=== PATIENT | female | born 1945 | race Caucasian/White ===

== ENCOUNTER 2019-12-17 15:31 | Inpatient (IN) | payer MEDICARE, SELFPAY ==
[2019-12-17] VITALS (8 sets, daily range): BP systolic 98–121; BP diastolic 49–79; PULSE 63–111; RESP 16–22; TEMP 36.7–39.1; O2SAT 94–98; BMI 27.1
--- NOTE | ~2019-12-17 | XR_ITS ---
EXAMINATION: XR chest 1V portable DATE: 12/17/2019 16:46 INDICATION: Sepsis. Weakness and dizziness. TECHNIQUE: A single frontal view of the chest was obtained. COMPARISON: Chest 2 views 11/19/2018, CT abdomen and pelvis 11/12/2015 FINDINGS: The chest demonstrates clear lungs without pneumonia, pleural effusion, or pneumothorax. Th e heart size is normal. There are surgical clips in left axilla. IMPRESSION: 1. No acute cardiopulmonary disease. Reviewed, dictated and finalized at location A. INSTRUCTOR
--- NOTE | 2019-12-17 15:47 | ECG_ITS ---
Measurements Intervals [place] Rate: 98 P: 51 MO: 171 QRS: 10 QRSD: 94 T: 30 QT: 321 QTc: 412 Interpretive Statements SINUS RHYTHM INCOMPLETE RIGHT BUNDLE BRANCH BLOCK BORDERLINE ST-T WAVE ABNORMALITY- DIFFUSE LEADS BASELINE WANDER- II, III, AVR, AVL, AVF BORDERLINE ECG Electronically Signed On 12-17-2019 17:52:30 HEALTH MANAGER by Nehemias Grossman D.O.
--- NOTE | 2019-12-17 16:01 | PC.NURSE ---
SPOKE WITH GEOVANNI MARSH ABOUT PT PRESENTATION MEETING SEPSIS CRITERIA, VERBAL ORDER TO PLACE SEPSIS PROTOCOL.
--- NOTE | 2019-12-17 16:03 | ED.AMS ---
HPI - Altered Mental Status General Chief Complaint: Altered Mental Status Stated Complaint: Disoriented. Time Seen by Provider: 12/17/19 16:00 Source: family and RN notes reviewed Mode of arrival: other Limitations: altered mental status History of Present Illness HPI narrative: Pt is a 74 y/o female who presents to the ED with c/o AMS that began today. Pt's family was in the room and provided the information. Pt?s family called the pt?s PCP last week thinking the pt had a UTI. Pt was sent some abx, but the pt?s family is unsure if the pt has been taking the medication.Pt gets her blood drawn weekly for her chemotherapy for her bladder cancer. Pt went to her PCP?s office today and the pt?s family states the pt proceeded to lay and not respond to questions. Pt had her blood drawn today and the pt complained of being cold and not able to warm back up. She began to talk incoherently while at her PCP's office. Pt was given a piece of cheese and pt's family states that she chewed on the cheese like a piece of gum. Pt choked on the cheese and spit her coffee onto the dashboard while en route to the ED today. Pt's oncologist is Dr. Frank. HPI is limited due to pt's AMS. complaint: altered mental status Onset (ago): hour(s) Associated symptoms: chills and other (limited due to pt's AMS) Related Data Allergies Allergy/AdvReac Type Severity Reaction Status Date / Time Penicillins Allergy Unknown Verified 10/28/15 14:18 Review of Systems Review of Systems: ROS unobtainable: other (limited due to pt's AMS.) Constitutional: Constitutional: Reports chills Neurologic: Reports other (AMS) [facility] Past Medical History Medical History (Updated 12/17/19 @ 18:45 by Freedom Daniel MD) Arthritis Cataracts, bilateral DVT (deep venous thrombosis) right leg IBS (irritable bowel syndrome) Myocardial infarction Osteoarthritis Peripheral vascular disease BLE Pneumonia Rheumatoid arthritis Seasonal allergies Type II diabetes mellitus Urethral cancer Surgical History Surgical History (Updated 12/17/19 @ 16:27 by Darcy Greer) Hx of appendectomy Hx of cataract removal with insertion of prosthetic lens Hx of right BKA Family History Family History (Updated 08/28/14 @ 07:13 by DOCTOR UNKNOWN) Father Carcinoma of colon Social History Social History Smoking status: Never smoker Gender identity (if verbalized by the patient): Female Exam Const: General: no acute distress, confusion and ill appearing Orientation/consciousness: patient oriented x3 HENMT: Head: normal to inspection Eyes: Conjunctivae: conjunctivae normal Pupils: Equal, round and reactive pupils present Neck: Neck: normal visual inspection Chest: Chest palpation & inspection: normal inspection of the chest Resp: Effort & Inspection: normal respiratory effort Auscultation: clear to auscultation bilaterally Cardio: Rate: regular rate GI: GI Palp: Yes Soft to palpation Back/Spine/Pelvis: Back: no CVA tenderness Skin: General skin exam: normal color Rashes: no rashes Neuro: General: patient oriented x3 and moves all extremities Extrem: General: normal to inspection Other: BKA right Course Course Emergency Course: Patient feeling much better after IV fluids I discussed labs and x-ray findings with the patient and the family. Also discussed with [facility] oncology team they have presently no beds at this time we will admit the patient start IV antibiotic. Consultations Consultation #1: Discussed case with [facility] ED. States there are no beds available. Date: 12/17/19 Time: 17:23 Consultation #2: Discussed case with LAINE Ma (Hospitalist). Accepts admission to Dr. Noland. Date: 12/17/19 Time: 17:29 Vital Signs Vital signs: Vital Signs Temperature 39.1 C H 12/17/19 15:40 Pulse Rate 111 H 12/17/19 15:40 Respiratory Rate 22 H 12/17/19 15:40 Blood Pressure 121/60 12/17/19 15:40 Pulse Oximetry 95 12/17/19 15:
[2019-12-17 16:10] LABS: Basophils Absolute Auto 0.1 K/mm3 (0.0-0.1); Eosinophils Absolute Auto 0.1 K/mm3 (0-0.3); Eosinophils Percent Auto 0.4 % (0-4.4); Hematocrit 36.5 % (37.0-47.0); Hemoglobin 12.5 g/dL (12.0-15.0); Immature Granulocyte Absolute 1.03 K/mm3 (0.00-0.031); Immature Granulocyte Percent A 8.3 % (0-0.5); Lymphocytes Absolute Auto 1.07 K/mm3 (0.9-3.2); Lymphocytes Percent Auto 8.6 % (18.3-44.2); Mean Corpuscular HGB Conc 34.2 g/dl (32-36); Mean Corpuscular Hemoglobin 33.6 pg (26-34); Mean Corpuscular Volume 98.1 fl (80-100); Monocytes Absolute Auto 1.1 K/mm3 (0.1-0.6); Monocytes Percent Auto 9.1 % (2.6-8.5); Neutrophils Percent Auto 72.6 % (45.5-73.1); Platelet Count Result 270 k/mm3 (150-375); Red Blood Count 3.72 M/mm3 (4.2-5.4); Red Cell Distribution Width 12.7 % (11.5-14.5); White Blood Count 12.4 K/mm3 (4.5-10.0)
[2019-12-17 16:22] LABS: Lactic Acid Reflex 1.7 mmol/L (0.7-2.1)
[2019-12-17 16:24] LABS: Alanine Aminotransferase 13 U/L (4-35); Albumin Level 3.6 g/dL (3.5-5.1); Alkaline Phosphatase 90 U/L (38-126); Aspartate Amino Transferase 21 U/L (14-36); Bilirubin,Total 0.6 mg/dL (0.2-1.3); Blood Urea Nitrogen 25 mg/dL (7-17); Calcium 9.2 mg/dL (8.4-10.2); Carbon Dioxide 27 mmol/L (22-30); Chloride 99 mmol/L (98-107); Estimated CRCL calculation 40 ml/min; Estimated Glomerular Filt Rate > 60; Glucose 291 mg/dL (65-105); Prothrombin Time 12.7 Seconds (11.1-14.7); Sodium 137 mmol/L (137-145)
[2019-12-17 16:25] LABS: Partial Thromboplastin Time 25.8 SECONDS (22.3-36.8)
[2019-12-17 16:28] LABS: CRP 1.9 mg/dL (<1.0); Lipase 30 U/L (23-300)
[2019-12-17 16:35] LABS: Troponin I 0.014 ng/mL (0.000-0.034)
[2019-12-17 16:48] LABS: Add Urine Microscopic? YES; Appearance Urine Turbid (Clear); Bacteria Urine 2+ /hpf; Bilirubin Urine Negative (Negative); Color Urine Yellow (Yellow); Glucose Urine UA 3+ mg/dL (Negative); Ketones Urine Trace mg/dL (Negative); Leukocyte Esterase Ur 2+ LEU/UL (Negative); Mucus Urine Moderate /lpf; Nitrate Urine Negative (Negative); Protein Urine 3+ mg/dL (Negative); RBC Urine 51-75 /hpf (0-2); Specific Grav Ur 1.013 (1.001-1.035); Urobilinogen Urine Negative mg/dL (<2.0); WBC Urine >75 /hpf
[2019-12-17 16:49] LABS: Blood Urine Negative (Negative)
[2019-12-17] MEDS: ACETAMINOPHEN 325 MG TABLET 650 MG PO (17:55)
[2019-12-17] MEDS: SODIUM CHLORIDE 0.9% IV 2,000 ML 999 ML (17:55)
[2019-12-17] MEDS: SODIUM CHLORIDE 0.9% IV 1,000 ML 125 ML IV CONT (20:42)
[2019-12-17 20:44] LABS: Glucose Point of Care 205 (65-105)
--- NOTE | 2019-12-17 21:49 | ADMGEN ---
This patient, Sal Thompson, was admitted to IMU Room 205-02. Patient/family oriented to hospital policies and general routines including ID bracelet, bed and alarms, visiting hours, pain management, procedures, bathroom and other care routines, personal items, smoking policy, room service/diet, and visiting hours. Valuables list has been completed. Information on how to activate the Rapid Response Team has been discussed. Patient/Family are encouraged to report perceived risks to care and to ask questions if they do not understand what they are told or what they should do.
[2019-12-18] VITALS (16 sets, daily range): BP systolic 99–125; BP diastolic 37–49; PULSE 70–98; RESP 18–21; TEMP 36.4–39.4; O2SAT 96–100; BMI 27.2
[2019-12-18] MEDS: ACETAMINOPHEN 325 MG TABLET 650 MG PO (00:24)
--- NOTE | 2019-12-18 01:50 | PM.IMHP ---
H&P: HPI History of Present Illness Chief complaint: altered mental status uti Narrative: Date and time of patient contact: 12/18/2019 at 1:30 a.m. Sal Thompson is a 74 year old female with a past medical history of metastatic urethral cancer, peripheral vascular disease status post right below-knee amputation, and diabetes who presented to the ER with confusion. The patient denies having actually been confused but while in her primary care physician's office prior to coming to the ER the patient was lying down and not responding to questions. She was also talking incoherently at her primary care physician's office. The family gave her piece of cheese to eat and she chewed on it like it was a piece of gum. She then choked on the cheese. She also is better coffee on to the dashboard while coming to the ER today. The patient tells me that her biggest complaint was that she was so cold she was shaking and could not walk a straight line. She has been having dysuria for approximately 2 weeks. She had went to her primary care doctor in [facility] for UTI about a week ago but the family was uncertain if the patient had actually taken antibiotic. She denies any nausea or vomiting. She is currently alert and oriented x3. She denies any cough, congestion, sore throat, headache or visual changes. When the patient arrived to the ER she could not recall her date of , where she was at or the month. When I asked her if she was feeling confused earlier in the day see stated that ?that was nonsense. She does not remember being confused. She reports that her stools have been harder more recently. She states that she needs to start taking MiraLax. She usually takes MiraLax as needed at home. Her last bowel movement was yesterday. Patient has noticed that her Toviaz has not been helping with her urinary incontinence for the last 2 weeks. She stated that before the last 2 weeks the medication was working well. The patient did have right CVA tenderness on exam. The patient's blood pressures did dip to 98/70 just prior to transfer to the floor. But her blood pressures have been stable since that time. Patient receives cancer therapy at [facility]. Evidently the patient has been accepted to the oncology service by Dr. Frank. She is awaiting a bed at [facility]. Review of Systems Review of Systems: Narrative: Except as documented in the HPI, all other systems were reviewed and are negative. [facility] Past Medical History Medical History (Updated 12/18/19 @ 01:58 by Venessa Lamb DO) IBS (irritable bowel syndrome) Myocardial infarction Osteoarthritis Peripheral vascular disease BLE subsequent right [id number] amputation Pneumonia Rheumatoid arthritis Seasonal allergies Shingles 2009 Type II diabetes mellitus Urethral cancer Diagnosed 2017 Surgical History Surgical History (Updated 12/18/19 @ 01:58 by Venessa Lamb DO) History of colonoscopy 2010 Hx of appendectomy September 2015 Hx of cataract removal with insertion of prosthetic lens Hx of right BKA March 2019 due to nonhealing foot wound from peripheral vascular disease Family History Family History (Updated 12/17/19 @ 22:04 by Janeth Gonzalez RN) Father Carcinoma of colon Diabetes mellitus Hypertension Arthritis Mother Diabetes mellitus Hypertension Arthritis Sibling Diabetes mellitus Social History Social History (Updated 12/18/19 @ 03:41 by Venessa Lamb DO) Smoking status: Never smoker Alcohol intake: never Substance use: never Living arrangements: alone Additional living arrangements comments: She is . Gender identity (if verbalized by the patient): Female Spiritual care concerns: No Agree to blood products: Yes Meds Home Medications and Allergies Home Medications Medication Instructions Recorded Confirmed Type amlodipine 5 mg PO DAILY 12/17/19 12/17/19 History atorvastatin 40 mg P
[2019-12-18] MEDS: SODIUM CHLORIDE 0.9% IV 1,000 ML 125 ML IV CONT ×2 (04:41→13:19)
[2019-12-18 04:47] LABS: Basophils Absolute Auto 0.1 K/mm3 (0.0-0.1); Basophils Percent Auto 0.4 % (0.2-1.2); Eosinophils Absolute Auto 0.1 K/mm3 (0-0.3); Eosinophils Percent Auto 0.5 % (0-4.4); Hematocrit 28.5 % (37.0-47.0); Hemoglobin 9.3 g/dL (12.0-15.0); Immature Granulocyte Absolute 0.69 K/mm3 (0.00-0.031); Immature Granulocyte Percent A 6.1 % (0-0.5); Lymphocytes Absolute Auto 2.36 K/mm3 (0.9-3.2); Lymphocytes Percent Auto 20.8 % (18.3-44.2); Mean Corpuscular HGB Conc 32.6 g/dl (32-36); Mean Corpuscular Hemoglobin 32.6 pg (26-34); Mean Platelet Volume 9.2 fl (7.4-10.4); Monocytes Absolute Auto 1.4 K/mm3 (0.1-0.6); Neutrophils Absolute Auto 6.8 K/mm3 (1.3-6.7); Neutrophils Percent Auto 60.2 % (45.5-73.1); Platelet Count Result 213 k/mm3 (150-375); Red Blood Count 2.85 M/mm3 (4.2-5.4); Red Cell Distribution Width 12.8 % (11.5-14.5); White Blood Count 11.4 K/mm3 (4.5-10.0)
[2019-12-18 05:14] LABS: Blood Urea Nitrogen 15 mg/dL (7-17); Calcium 7.9 mg/dL (8.4-10.2); Carbon Dioxide 25 mmol/L (22-30); Chloride 106 mmol/L (98-107); Estimated CRCL calculation 39 ml/min; Estimated Glomerular Filt Rate > 60; Glucose 206 mg/dL (65-105); Potassium 3.1 mmol/L (3.4-5.0); Sodium 138 mmol/L (137-145)
[2019-12-18 06:58] LABS: Glucose Point of Care 139 (65-105)
[2019-12-18] MEDS: ENOXAPARIN 40 MG/0.4 ML SYRINGE SUB-Q (09:59)
[2019-12-18] MEDS: SILVERGEL (ELTA) 45 ML 1 APPLIC TOPICAL (09:59)
[2019-12-18 12:35] LABS: Glucose Point of Care 196 (65-105)
--- NOTE | 2019-12-18 14:12 | PCNSR ---
On 12/18/19, the student, Adina Green, provided care and completed [facility] documentation on this patient. I have reviewed the student's documentation and agree with the findings.
--- NOTE | 2019-12-18 16:23 | PM.IMPN ---
Progress Note: A&P Assessment and Plan (1) Sepsis: Code(s): A41.9 - Sepsis, unspecified organism Status: Acute Assessment and Plan: Due to pyelonephritis. Empiric antibiotic therapy with Rocephin has been initiated. Urine cultures have been obtained and are pending. Blood cultures have been obtained and are pending. Pt appears comfortable. (2) Metabolic encephalopathy: Code(s): G93.41 - Metabolic encephalopathy Status: Resolved Assessment and Plan: The patient appears to be back at baseline. (3) Acute UTI: Code(s): N39.0 - Urinary tract infection, site not specified Status: Acute Assessment and Plan: With likely ascending right pyelonephritis given right CVA tenderness. Patient has been placed on empiric antibiotic therapy with Rocephin. Urine culture and blood cultures are pending. I do not think pt needs transfer to [place], as she is improving. Subjective Date/time seen: 12/18/19 16:23 Interval history: 74 year old female with a past medical history of metastatic urethral cancer, peripheral vascular disease status post right below-knee amputation, and diabetes who presented to the ER with confusion. Pt is not confused today, oriented x3 since starting iv antibiotics. Review of Systems Review of Systems: All systems reviewed & are unremarkable except as noted in HPI and below Exam Narrative: Exam Narrative: General: A well-developed well-nourished, no acute distress HEENT: Mucous membranes are dry Neck: Supple, no JVD Respiratory: Clear to auscultation bilaterally, no increased work of breathing Cardiovascular: Normal S1-S2, regular rate, no murmurs Gastrointestinal: Soft, nontender, nondistended, positive bowel sounds Skin: Normal temperature, non jaundice, no pallor Extremities: Right ivbhw-[id number] amputation with stump site in good condition Neurological: Alert and oriented x3, speech is clear, cranial nerves appear to be intact except for the patient's chronic hearing loss, no gross motor deficits noted Psychiatric: Appropriate mood and affect, pleasant and cooperative Objective Data Vital Signs Vital Signs: Vital Signs - 24 hr 12/17/19 18:45 12/17/19 19:42 12/17/19 20:00 Temperature 37.7 C H Pulse Rate 82 86 87 Respiratory Rate 16 18 18 Blood Pressure 100/74 104/49 L 104/57 L Pulse Oximetry 98 98 95 12/17/19 20:35 12/17/19 20:44 12/17/19 22:00 Temperature 36.7 C Pulse Rate 63 84 93 Respiratory Rate 20 Blood Pressure 98/79 L Pulse Oximetry 94 12/18/19 00:00 12/18/19 00:24 12/18/19 01:24 Temperature 39.4 C H 39.4 C H 38.5 C H Pulse Rate 95 Respiratory Rate 20 Blood Pressure 118/46 L Pulse Oximetry 97 12/18/19 02:00 12/18/19 04:00 12/18/19 06:00 Temperature 37.8 C H Pulse Rate 98 85 70 Respiratory Rate 20 Blood Pressure 110/41 L Pulse Oximetry 97 12/18/19 06:31 12/18/19 08:00 12/18/19 10:00 Temperature 36.9 C 37.5 C Pulse Rate 85 86 Respiratory Rate 20 Blood Pressure 107/49 L Pulse Oximetry 100 12/18/19 12:00 12/18/19 12:08 12/18/19 14:00 Temperature 37.1 C Pulse Rate 93 86 84 Respiratory Rate 20 Blood Pressure 107/37 L Pulse Oximetry 96 Intake/Output Intake/Output: Intake & Output 12/15/19 12/16/19 12/17/19 12/18/19 23:59 23:59 23:59 23:59 Intake Total 2049 3399 Balance 2049 340 Meds/Results Medications: Active Medications Generic Name Dose Route Start Last Admin Trade Name Freq PRN Reason Stop Dose Admin Acetaminophen 650 mg 12/17/19 23:59 12/18/19 00:24 Tylenol Tablet PO 650 mg Q4H PRN Administration Mild Pain (1-3) or Fever Dextrose 12.5 gm 12/17/19 19:46 Dextrose 50% Syringe IV PUSH PRN PRN Hypoglycemia Protocol Enoxaparin Sodium 40 mg 12/18/19 09:00 12/18/19 09:59 Lovenox SUB-Q 40 mg DAILY JENNA Administration Glucagon 1 mg 12/17/19 19:46 Glucagon For Inj IM DE
[2019-12-18 17:27] LABS: Glucose Point of Care 175 (65-105)
[2019-12-18] MEDS: ESCITALOPRAM OXALATE 2.5 MG TABLET PO (17:42)
[2019-12-18] MEDS: INSULIN ASPART (*BKC) 100 UNITS/ML 10 UNITS SUB-Q (17:44)
[2019-12-18] MEDS: GABAPENTIN 300 MG CAPSULE PO (20:16)
[2019-12-18] MEDS: INSULIN GLARGINE (*BKC) 100 UNITS/ML 10 UNITS SUB-Q (20:21)
[2019-12-18 20:24] LABS: Glucose Point of Care 104 (65-105)
[2019-12-19 04:53] LABS: Hemoglobin 10.2 g/dL (12.0-15.0); Mean Corpuscular HGB Conc 32.9 g/dl (32-36); Mean Corpuscular Hemoglobin 32.5 pg (26-34); Mean Corpuscular Volume 98.7 fl (80-100); Mean Platelet Volume 9.1 fl (7.4-10.4); Platelet Count Result 227 k/mm3 (150-375); Red Blood Count 3.14 M/mm3 (4.2-5.4); Red Cell Distribution Width 12.8 % (11.5-14.5)
[2019-12-19 05:09] LABS: Blood Urea Nitrogen 12 mg/dL (7-17); Calcium 8.1 mg/dL (8.4-10.2); Carbon Dioxide 25 mmol/L (22-30); Chloride 106 mmol/L (98-107); Estimated CRCL calculation 50 ml/min; Estimated Glomerular Filt Rate > 60; Glucose 139 mg/dL (65-105); Sodium 138 mmol/L (137-145)
[2019-12-19] MEDS: LEVOTHYROXINE SODIUM 88 MCG TABLET PO (06:33)
[2019-12-19] MEDS: SILVERGEL (ELTA) 45 ML 1 APPLIC TOPICAL (06:37)
[2019-12-19 08:00] VITALS: BP 115/52; PULSE 78; RESP 16; TEMP 36.6; O2SAT 97
[2019-12-19 08:53] LABS: Glucose Point of Care 102 (65-105)
[2019-12-19] MEDS: predniSONE 1 MG TABLET 4 MG PO (09:08)
[2019-12-19] MEDS: AMLODIPINE BESYLATE 5 MG TABLET PO (09:08)
[2019-12-19] MEDS: GABAPENTIN 300 MG CAPSULE PO ×2 (09:08→20:49)
[2019-12-19] MEDS: VITAMIN E 400 UNIT CAPSULE PO (09:08)
[2019-12-19] MEDS: ATORVASTATIN 40 MG TABLET PO (09:08)
[2019-12-19] MEDS: ENOXAPARIN 40 MG/0.4 ML SYRINGE SUB-Q (09:08)
[2019-12-19] MEDS: THERAPEUTIC MULTIVITAMINS/MINERALS TAB (*BKC) 1 TABLET PO (09:08)
--- NOTE | 2019-12-19 12:08 | PHAR ---
HOME MED VERIFIED = [facility] RX [id number] TOVIAZ 8MG 1 TAB DAILY
--- NOTE | 2019-12-19 12:25 | PM.IMPN ---
Progress Note: A&P Assessment and Plan (1) Sepsis: Code(s): A41.9 - Sepsis, unspecified organism Status: Acute Assessment and Plan: Due to pyelonephritis. Empiric antibiotic therapy with Rocephin has been initiated. Urine cultures have been obtained and are pending. Blood cultures have been obtained and are pending. Pt appears comfortable. (2) Metabolic encephalopathy: Code(s): G93.41 - Metabolic encephalopathy Status: Resolved Assessment and Plan: The patient appears to be back at baseline. (3) Acute UTI: Code(s): N39.0 - Urinary tract infection, site not specified Status: Acute Assessment and Plan: With likely ascending right pyelonephritis given right CVA tenderness. Patient has been placed on empiric antibiotic therapy with Rocephin. Urine culture and blood cultures are pending. I do not think pt needs transfer to [place], as she is improving. Subjective Date/time seen: 12/19/19 12:25 Interval history: 74 year old female with a past medical history of metastatic urethral cancer, peripheral vascular disease status post right below-knee amputation, and diabetes who presented to the ER with confusion. Pt is not confused today, oriented x3 since starting iv antibiotics. Pt feeling better, awaiting full BC and UC report. Exam Narrative: Exam Narrative: General: A well-developed well-nourished, no acute distress HEENT: Mucous membranes are dry Neck: Supple, no JVD Respiratory: Clear to auscultation bilaterally, no increased work of breathing Cardiovascular: Normal S1-S2, regular rate, no murmurs Gastrointestinal: Soft, nontender, nondistended, positive bowel sounds Skin: Normal temperature, non jaundice, no pallor Extremities: Right chqfn-qqw-[id number] amputation with stump site in good condition Neurological: Alert and oriented x3, speech is clear,mild [place] Psychiatric: Appropriate mood and affect, pleasant and cooperative Objective Data Vital Signs Vital Signs: Vital Signs - 24 hr 12/18/19 14:00 12/18/19 16:00 12/18/19 17:32 Temperature 36.4 C L Pulse Rate 84 76 78 Respiratory Rate 21 H Blood Pressure 108/44 L Pulse Oximetry 97 12/18/19 19:58 12/18/19 23:21 12/19/19 08:00 Temperature 37.0 C 36.6 C 36.6 C Pulse Rate 87 79 78 Respiratory Rate 20 18 16 Blood Pressure 125/40 L 99/45 L 115/52 L Pulse Oximetry 97 98 97 Intake/Output Intake/Output: Intake & Output 12/16/19 12/17/19 12/18/19 12/19/19 23:59 23:59 23:59 23:59 Intake Total 2049 4403 720 Balance 2049 4403 720 Meds/Results Medications: Active Medications Generic Name Dose Route Start Last Admin Trade Name Freq PRN Reason Stop Dose Admin Acetaminophen 650 mg 12/17/19 23:59 12/18/19 00:24 Tylenol Tablet PO 650 mg Q4H PRN Administration Mild Pain (1-3) or Fever Amlodipine Besylate 5 mg 12/19/19 09:00 12/19/19 09:08 Norvasc PO 5 mg DAILY JENNA Administration Atorvastatin Calcium 40 mg 12/19/19 09:00 12/19/19 09:08 Lipitor PO 40 mg DAILY JENNA Administration Calcium Carbonate 500 mg 12/19/19 09:00 12/19/19 09:08 Os-Collin 500 +D Tablet PO 01/18/20 09:01 500 mg DAILY JENNA Administration Dextrose 12.5 gm 12/17/19 19:46 Dextrose 50% Syringe IV PUSH PRN PRN Hypoglycemia Protocol Enoxaparin Sodium 40 mg 12/18/19 09:00 12/19/19 09:08 Lovenox SUB-Q 40 mg DAILY JENNA Administration Escitalopram Oxalate 2.5 mg 12/18/19 18:00 12/18/19 17:42 Lexapro PO 2.5 mg QPM JENNA Administration Gabapentin 300 mg 12/18/19 21:00 12/19/19 09:08 Neurontin PO 300 mg Q12HR JENNA Administration Glucagon 1 mg 12/17/19 19:46 Glucagon For Inj IM PRN PRN Hypoglycemia Protocol Glucose 15 gm 12/17/19 19:46 Glutose 15 PO PRN PRN Hypoglycemia Protocol Dextrose 1,000 mls @ 100 mls/hr 12/17/19 19:46 Dextrose 5% 1,000 Ml IVPB PRN PRN Hypogl
[2019-12-19 12:51] LABS: Glucose Point of Care 180 (65-105)
[2019-12-19 16:00] VITALS: BP 111/50; PULSE 74; RESP 18; TEMP 36.3; O2SAT 96
[2019-12-19 16:19] LABS: Glucose Point of Care 270 (65-105)
[2019-12-19] MEDS: ESCITALOPRAM OXALATE 2.5 MG TABLET PO (18:19)
[2019-12-19] MEDS: INSULIN ASPART (*BKC) 100 UNITS/ML 10 UNITS SUB-Q (18:20)
[2019-12-19] MEDS: INSULIN ASPART (*BKC) 100 UNITS/ML SUB-Q (18:20)
--- NOTE | 2019-12-19 19:46 | PC.NURSE ---
This patient, Sal Thompson, was transferred to [facility] 12/19/19 at 1946. Personal belongings sent with patient. Belongings list checked and signed with receiving [ ]. Report given to BRIAN POLANCO. Appropriate documentation sent with patient.
[2019-12-19] MEDS: INSULIN GLARGINE (*BKC) 100 UNITS/ML 10 UNITS SUB-Q (20:49)
[2019-12-19 21:10] LABS: Glucose Point of Care 106 (65-105)
[2019-12-19 22:36] VITALS: BP 117/51; PULSE 95; RESP 16; TEMP 36.7; O2SAT 95
[2019-12-20] MEDS: LEVOTHYROXINE SODIUM 88 MCG TABLET PO (06:00)
[2019-12-20 06:18] VITALS: BP 108/48; PULSE 88; RESP 18; TEMP 36.6; O2SAT 97
[2019-12-20 06:49] LABS: Glucose Point of Care 157 (65-105)
[2019-12-20] MEDS: ATORVASTATIN 40 MG TABLET PO (08:10)
[2019-12-20] MEDS: VITAMIN E 400 UNIT CAPSULE PO (08:10)
[2019-12-20] MEDS: GABAPENTIN 300 MG CAPSULE PO ×2 (08:10→20:09)
[2019-12-20] MEDS: predniSONE 1 MG TABLET 4 MG PO (08:10)
[2019-12-20] MEDS: THERAPEUTIC MULTIVITAMINS/MINERALS TAB (*BKC) 1 TABLET PO (08:10)
[2019-12-20] MEDS: AMLODIPINE BESYLATE 5 MG TABLET PO (08:10)
[2019-12-20] MEDS: ENOXAPARIN 40 MG/0.4 ML SYRINGE SUB-Q (08:12)
[2019-12-20] MEDS: SILVERGEL (ELTA) 45 ML 1 APPLIC TOPICAL (08:15)
[2019-12-20] MEDS: INSULIN ASPART (*BKC) 100 UNITS/ML 10 UNITS SUB-Q ×3 (08:20→17:21)
[2019-12-20 08:34] LABS: Glucose Point of Care 130 (65-105)
[2019-12-20 09:50] LABS: Hematocrit 32.1 % (37.0-47.0); Hemoglobin 10.8 g/dL (12.0-15.0); Mean Corpuscular HGB Conc 33.6 g/dl (32-36); Mean Corpuscular Hemoglobin 33.5 pg (26-34); Mean Corpuscular Volume 99.7 fl (80-100); Mean Platelet Volume 8.8 fl (7.4-10.4); Platelet Count Result 235 k/mm3 (150-375); Red Blood Count 3.22 M/mm3 (4.2-5.4); Red Cell Distribution Width 12.8 % (11.5-14.5); White Blood Count 10.3 K/mm3 (4.5-10.0)
[2019-12-20 10:05] LABS: Blood Urea Nitrogen 15 mg/dL (7-17); Calcium 8.4 mg/dL (8.4-10.2); Carbon Dioxide 30 mmol/L (22-30); Chloride 102 mmol/L (98-107); Estimated CRCL calculation 45 ml/min; Estimated Glomerular Filt Rate > 60; Glucose 237 mg/dL (65-105); Potassium 3.1 mmol/L (3.4-5.0); Sodium 139 mmol/L (137-145)
[2019-12-20 12:10] LABS: Glucose Point of Care 136 (65-105)
[2019-12-20] MEDS: POTASSIUM CHLORIDE 20 MEQ PACKET (FOR LIQUID) PO (13:23)
[2019-12-20] MEDS: NITROFURANTOIN MACROCRYSTALS 50 MG CAP PO (13:25)
--- NOTE | 2019-12-20 13:31 | PM.IMPN ---
Progress Note: A&P Assessment and Plan (1) Sepsis: Code(s): A41.9 - Sepsis, unspecified organism Status: Resolved Assessment and Plan: Due to pyelonephritis. Urine cultures shows VRE. Blood cultures have been obtained and are pending. Pt appears comfortable, no confusion. Pt started on nitrofuratoin. ID consulted. (2) Metabolic encephalopathy: Code(s): G93.41 - Metabolic encephalopathy Status: Resolved Assessment and Plan: The patient appears to be back at baseline. potassium slightly low on labs will correct. (3) Acute UTI: Code(s): N39.0 - Urinary tract infection, site not specified Status: Acute Assessment and Plan: With likely ascending right pyelonephritis given right CVA tenderness. VRE UTI DR López has been consulted. I do not think pt needs transfer to [place], as she is improving. Subjective Date/time seen: 12/20/19 13:31 Interval history: 74 year old female with a past medical history of metastatic urethral cancer, peripheral vascular disease status post right below-knee amputation, and diabetes who presented to the ER with confusion. Pt is not confused today, oriented x3, UC positive for VRE, pt has PCN allergy started on nitrofurantoin. ID consulted for VRE UTI. pt feels better since admission. Review of Systems Review of Systems: All systems reviewed & are unremarkable except as noted in HPI and below Exam Narrative: Exam Narrative: General: A well-developed well-nourished, no acute distress HEENT: Mucous membranes are dry Neck: Supple, no JVD Respiratory: Clear to auscultation bilaterally, no increased work of breathing Cardiovascular: Normal S1-S2, regular rate, no murmurs Gastrointestinal: Soft, nontender, nondistended, positive bowel sounds Skin: Normal temperature, non jaundice, no pallor Extremities: Right gqlzq-qcm-wbqo amputation with stump site in good condition Neurological: Alert and oriented x3, speech is clear,mild [place] Psychiatric: Appropriate mood and affect, pleasant and cooperative Objective Data Vital Signs Vital Signs: Vital Signs - 24 hr 12/19/19 16:00 12/19/19 22:36 12/20/19 06:18 Temperature 36.3 C L 36.7 C 36.6 C Pulse Rate 74 95 88 Respiratory Rate 18 16 18 Blood Pressure 111/50 L 117/51 L 108/48 L Pulse Oximetry 96 95 97 Intake/Output Intake/Output: Intake & Output 12/17/19 12/18/19 12/19/19 12/20/19 23:59 23:59 23:59 23:59 Intake Total 2049 4403 1450 480 Balance 2049 4403 1450 480 Meds/Results Medications: Active Medications Generic Name Dose Route Start Last Admin Trade Name Freq PRN Reason Stop Dose Admin Acetaminophen 650 mg 12/17/19 23:59 12/18/19 00:24 Tylenol Tablet PO 650 mg Q4H PRN Administration Mild Pain (1-3) or Fever Amlodipine Besylate 5 mg 12/19/19 09:00 12/20/19 08:10 Norvasc PO 5 mg DAILY JENNA Administration Atorvastatin Calcium 40 mg 12/19/19 09:00 12/20/19 08:10 Lipitor PO 40 mg DAILY JENNA Administration Calcium Carbonate 500 mg 12/19/19 09:00 12/20/19 08:10 Os-Collin 500 +D Tablet PO 01/18/20 09:01 500 mg DAILY JENNA Administration Dextrose 12.5 gm 12/17/19 19:46 Dextrose 50% Syringe IV PUSH PRN PRN Hypoglycemia Protocol Enoxaparin Sodium 40 mg 12/18/19 09:00 12/20/19 08:12 Lovenox SUB-Q 40 mg DAILY JENNA Administration Escitalopram Oxalate 2.5 mg 12/18/19 18:00 12/19/19 18:19 Lexapro PO 2.5 mg QPM JENNA Administration Gabapentin 300 mg 12/18/19 21:00 12/20/19 08:10 Neurontin PO 300 mg Q12HR JENNA Administration Glucagon 1 mg 12/17/19 19:46 Glucagon For Inj IM PRN PRN Hypoglycemia Protocol Glucose 15 gm 12/17/19 19:46 Glutose 15 PO PRN PRN Hypoglycemia Protocol Dextrose 1,000 mls @ 100 mls/hr 12/17/19 19:46 Dextrose 5% 1,000 Ml IVPB PRN PRN Hypoglycemia Protocol Ceftriaxone Sodium/Dextrose 1 gm i
--- NOTE | 2019-12-20 13:39 | WPDINFPN2 ---
Progress Note: A&P Assessment and Plan (1) Acute UTI: Code(s): N39.0 - Urinary tract infection, site not specified Status: Acute Assessment and Plan: uti REC Linezolid x 7 days. Will see prn Subjective Date/time seen: 12/20/19 13:39 Objective Data Vital Signs Vital Signs: Vital Signs - 24 hr 12/19/19 16:00 12/19/19 22:36 12/20/19 06:18 Temperature 36.3 C L 36.7 C 36.6 C Pulse Rate 74 95 88 Respiratory Rate 18 16 18 Blood Pressure 111/50 L 117/51 L 108/48 L Pulse Oximetry 96 95 97 Intake/Output Intake/Output: Intake & Output 12/17/19 12/18/19 12/19/19 12/20/19 23:59 23:59 23:59 23:59 Intake Total 2049 4403 1450 480 Balance 2049 4403 1450 480 Meds/Results Medications: Active Medications Generic Name Dose Route Start Last Admin Trade Name Freq PRN Reason Stop Dose Admin Acetaminophen 650 mg 12/17/19 23:59 12/18/19 00:24 Tylenol Tablet PO 650 mg Q4H PRN Administration Mild Pain (1-3) or Fever Amlodipine Besylate 5 mg 12/19/19 09:00 12/20/19 08:10 Norvasc PO 5 mg DAILY JENAN Administration Atorvastatin Calcium 40 mg 12/19/19 09:00 12/20/19 08:10 Lipitor PO 40 mg DAILY JENNA Administration Calcium Carbonate 500 mg 12/19/19 09:00 12/20/19 08:10 Os-Collin 500 +D Tablet PO 01/18/20 09:01 500 mg DAILY JENNA Administration Dextrose 12.5 gm 12/17/19 19:46 Dextrose 50% Syringe IV PUSH PRN PRN Hypoglycemia Protocol Enoxaparin Sodium 40 mg 12/18/19 09:00 12/20/19 08:12 Lovenox SUB-Q 40 mg DAILY JENNA Administration Escitalopram Oxalate 2.5 mg 12/18/19 18:00 12/19/19 18:19 Lexapro PO 2.5 mg QPM JENNA Administration Gabapentin 300 mg 12/18/19 21:00 12/20/19 08:10 Neurontin PO 300 mg Q12HR JENNA Administration Glucagon 1 mg 12/17/19 19:46 Glucagon For Inj IM PRN PRN Hypoglycemia Protocol Glucose 15 gm 12/17/19 19:46 Glutose 15 PO PRN PRN Hypoglycemia Protocol Dextrose 1,000 mls @ 100 mls/hr 12/17/19 19:46 Dextrose 5% 1,000 Ml IVPB PRN PRN Hypoglycemia Protocol Ceftriaxone Sodium/Dextrose 1 gm in 50 mls @ 100 mls/hr 12/18/19 18:00 12/19/19 18:50 Rocephin 1 Gm/D5w 50 Ml IVPB Infused Q24H JENAN Infusion Insulin Aspart 3 - 6 units 12/18/19 08:00 12/20/19 12:09 Novolog SUB-Q Not Given TIDWM [facility] Protocol Insulin Aspart 10 units 12/18/19 17:00 12/20/19 12:05 Novolog SUB-Q 10 units TIDWM JENNA Administration Insulin Glargine 10 units 12/18/19 21:00 12/19/19 20:49 Lantus SUB-Q 10 units HS [facility] Administration Levothyroxine Sodium 88 mcg 12/19/19 06:30 12/20/19 06:00 Synthroid PO 88 mcg DAILY@0630 [facility] Administration Linezolid 600 mg 12/20/19 21:00 Zyvox PO 12/27/19 09:01 Q12HR [facility] Multivitamins/Calcium 1 tablet 12/19/19 09:00 12/20/19 08:10 Therapeutic Multivitamins/Minerals PO 1 tablet DAILY [facility] Administration Nitrofurantoin Macrocrystals 50 mg 12/20/19 13:00 12/20/19 13:25 Macrodantin PO 50 mg QID JENNA Administration Ondansetron HCl 4 mg 12/17/19 18:47 Zofran Inj IV PUSH Q4H PRN Nausea Potassium Chloride 20 meq 12/20/19 09:00 12/20/19 13:23 Kcl Powder (For Liquid) PO 20 meq DAILY [facility] Administration Prednisone 4 mg 12/19/19 08:00 12/20/19 08:10 Prednisone PO 4 mg DAILY@0800 JENNA Administration Silver Nitrate 1 applic 12/18/19 09:00 12/20/19 08:15 Silvergel TOPICAL 1 applic DAILY JENNA Administration Vitamin E 400 unit 12/19/19 09:00 12/20/19 08:10 Vitamin E PO 400 unit DAILY JENNA Administration Radiology Results: ITS Impressions Chest X-Ray 12/17/19 16:53 IMPRESSION: 1. No acute cardiopulmonary disease. Labs Labs: Laboratory Results - last 24 hr 12/19/19 12/19/19 12/20/19 15:58 20:47 05:07 WBC RBC Hgb Hct MCV MCH MCHC RDW Plt
[2019-12-20 14:00] VITALS: BP 107/58; PULSE 104; RESP 18; TEMP 37.5; O2SAT 96
[2019-12-20] MEDS: ESCITALOPRAM OXALATE 2.5 MG TABLET PO (17:22)
[2019-12-20 17:30] LABS: Glucose Point of Care 173 (65-105)
[2019-12-20 20:00] VITALS: PULSE 104; RESP 18; O2SAT 96
[2019-12-20] MEDS: LINEZOLID 600 MG TABLET PO (20:09)
[2019-12-20] MEDS: INSULIN GLARGINE (*BKC) 100 UNITS/ML 10 UNITS SUB-Q (20:11)
[2019-12-20 22:00] VITALS: BP 136/55; PULSE 94; RESP 20; TEMP 37.1; O2SAT 96
[2019-12-20 23:04] LABS: Glucose Point of Care 144 (65-105)
[2019-12-21] MEDS: LEVOTHYROXINE SODIUM 88 MCG TABLET PO (05:41)
[2019-12-21 05:57] VITALS: BP 124/56; PULSE 80; RESP 18; TEMP 36.6; O2SAT 94
--- NOTE | 2019-12-21 06:19 | CONS_ITS ---
DATE OF CONSULTATION: 12/20/2019 REASON FOR CONSULTATION: UTI. HISTORY OF PRESENT ILLNESS: The patient is a 74-year-old female who has chronic urge incontinence. She has seen a urologist in the past who made no recommendations as far as underlying diagnosis or treatment and does not see a urologist on a regular basis. She has had no previous bladder nor kidney surgery, knows of no past nephrolithiasis or other anatomic disease. She reports frequent episodes of pneumonia. Otherwise, no recurrent infections. She presented to the hospital on the with incoherent speech, decreased level of consciousness, chills, dysuria. Here straight cath was performed, and she has been given ceftriaxone. Consultation was requested when results of her urine culture return. Today, she notes lassitude, although yesterday actually felt quite well without similar symptoms. She denies any ongoing confusion. She was on an antibiotic of unknown identity prior to admission for a suspected UTI. ALLERGIES: PENICILLIN CAUSED NECK AND FACIAL SWELLING IN THE DISTANT PAST. HABITS: No tobacco, no alcohol. PRESENT MEDICATIONS: No immunosuppressants. 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 REVIEW OF SYSTEMS: 14-point review otherwise negative. FAMILY HISTORY: Not pertinent to her present illness. SOCIAL HISTORY: She is , lives alone, retired. PHYSICAL EXAMINATION: GENERAL: This is an elderly female who appears her actual age, in no distress. VITAL SIGNS: Her temperature on arrival 39.1 and the following day up to 39.4, has been afebrile in 48 hours. Pulse 88, respirations 18, blood pressure is 108/48. SKIN: No rashes. Warm and dry. NODES: She has no cervical adenopathy. EENT: The conjunctivae appear normal. Pupils equal and round. The oral mucosa is well hydrated. Teeth in excellent repair. NECK: No masses, thyromegaly or tenderness. LUNGS: Clear to auscultation and percussion. BACK: No CVAT. CARDIAC: Regular rate and rhythm. No murmur, gallop, or rub. ABDOMEN: Nontender, soft, obese. No organomegaly. No masses. No catheter in place. EXTREMITIES: No clubbing, cyanosis, or edema. NEUROLOGIC: She is awake, alert, oriented, and appropriate. LABORATORY DATA: Urine culture with vancomycin-resistant Enterococcus faecalis, ampicillin susceptible. Blood cultures, same time, no growth after 3 days incubation. Her MRSA screen was negative. Her white count today is 10.3, 11.4 on the 28th, and 12.4 on admission. Her differential shows a minimal left shift. Chemistry panel has been normal other than hypokalemia and hyperglycemia. CRP 1.9. Urinalysis yellow, turbid, 6.0, 1.013, positive for protein, glucose, leukocyte esterase, 51-75 red cells, greater than 75 white cells with 2+ bacteria. RADIOLOGY: Not redone abdomen, pelvis, or chest x-ray, no active disease. ASSESSMENT: 1. Lassitude, confusion, fever, leukocytosis, suspected due to symptomatic urinary tract infection. Asymptomatic bacteruria is also considered, but is less likely. With her fever and leukocytosis, nitrofurantoin would not be the drug of first choice. 2. Penicillin allergy. 3. Urethral cancer but without apparent anatomic defects otherwise. 4. Chronic urinary incontinence. 5. Diabetes mellitus. RECOMMENDATIONS: 1. Glycemic control as you are doing. 2. Linezolid day #1 out of 7 days and stop nitrofurantoin as well as the ceftriaxone. The ceftriaxone may have moderate Enterococcus activity in this patient, but not sufficient. 3. Okay wit
[2019-12-21] MEDS: AMLODIPINE BESYLATE 5 MG TABLET PO (08:00)
[2019-12-21] MEDS: GABAPENTIN 300 MG CAPSULE PO (08:00)
[2019-12-21] MEDS: predniSONE 1 MG TABLET 4 MG PO (08:00)
[2019-12-21] MEDS: ATORVASTATIN 40 MG TABLET PO (08:00)
[2019-12-21] MEDS: THERAPEUTIC MULTIVITAMINS/MINERALS TAB (*BKC) 1 TABLET PO (08:00)
[2019-12-21] MEDS: LINEZOLID 600 MG TABLET PO (08:00)
[2019-12-21] MEDS: POTASSIUM CHLORIDE 20 MEQ PACKET (FOR LIQUID) PO (08:01)
[2019-12-21] MEDS: SILVERGEL (ELTA) 45 ML 1 APPLIC TOPICAL (08:01)
[2019-12-21] MEDS: VITAMIN E 400 UNIT CAPSULE PO (08:01)
[2019-12-21] MEDS: ENOXAPARIN 40 MG/0.4 ML SYRINGE SUB-Q (08:01)
[2019-12-21] MEDS: INSULIN ASPART (*BKC) 100 UNITS/ML SUB-Q (08:09)
[2019-12-21] MEDS: INSULIN ASPART (*BKC) 100 UNITS/ML 10 UNITS SUB-Q ×2 (08:09→12:30)
[2019-12-21 09:17] LABS: Glucose Point of Care 220 (65-105)
--- NOTE | 2019-12-21 12:01 | PCNFU ---
Nutrition Follow-Up Complete: Increased nutrient needs related to cancer dx, pressure ulcer and sepsis, as evidenced by calculated needs of 1764kcals/day and 63-76g pro/day. Patient will continue to eat 100% of meals Goal: Meeting goal. Pt current nutrition is DBCC. Nutrition recommendation: Agree Last recorded weight is 66.2 kg. Bowel Motility:+BM Labs Reviewed:Glu 237,Hct 32.1 Meds Noted: Lantus,Novolog,Synthroid Additional Notes: Pressure Ulcer Stage 2, Patient remains on a diabetic consistent carb diet. Intake has been good-greater than 75% of meals. Agree with diet orders. Monitoring: Will follow up in 7 days.
[2019-12-21 12:35] LABS: Glucose Point of Care 144 (65-105)
--- NOTE | 2019-12-21 13:26 | PM.DS ---
DS: Diagnosis Admitting Diagnosis Admitting Diagnosis: Sepsis, unspecified organism Discharge Diagnosis (1) Sepsis: Code(s): A41.9 - Sepsis, unspecified organism Status: Resolved Assessment and Plan: Due to pyelonephritis and uti. Urine cultures shows VRE. Blood cultures are negative to date, Pt appears comfortable, no confusion. Pt started on nitrofuratoin. ID consulted change nitrofuratoin to linezolid. Pt is safe for discharge with follow up with pcp with rpt uc in 7-10 days time. (2) Metabolic encephalopathy: Code(s): G93.41 - Metabolic encephalopathy Status: Resolved Assessment and Plan: The patient appears to be back at baseline. potassium slightly low on labs will correct, continue potassium supplements at home. (3) Acute UTI: Code(s): N39.0 - Urinary tract infection, site not specified Status: Resolved Assessment and Plan: 74 year old female with a past medical history of metastatic urethral cancer, peripheral vascular disease status post right below-knee amputation, and diabetes who presented to the ER with confusion. Pt is not confused today, oriented x3, UC positive for VRE, pt has PCN allergy started on nitrofurantoin. ID consulted for VRE UTI. Pt feels better since admission. I do not think pt needs transfer to [place], as she is improving. DS: Summary Time Spent with Patient Time attestation: Total time spent providing and/or coordinating discharge services:38 minutes on day of discharge Exam Narrative: Exam Narrative: General: A well-developed well-nourished, no acute distress HEENT: Mucous membranes are dry Neck: Supple, no JVD Respiratory: Clear to auscultation bilaterally, no increased work of breathing Cardiovascular: Normal S1-S2, regular rate, no murmurs Gastrointestinal: Soft, nontender, nondistended, positive bowel sounds Skin: Normal temperature, non jaundice, no pallor Extremities: Right [id number] amputation with stump site in good condition Neurological: Alert and oriented x3, speech is clear,mild [place] Psychiatric: Appropriate mood and affect, pleasant and cooperative DS: Data Data Completed and Pending Labs on day of discharge: Labs from last 24 hours 12/21/19 12/21/19 12/20/19 12:28 07:59 20:10 POC Capillary Glucose 144 H 220 H 144 H 12/20/19 17:20 POC Capillary Glucose 173 H Preliminary micro results at discharge 12/17/19 15:59 Blood Culture - Preliminary Blood 12/17/19 15:59 Blood Culture - Preliminary Blood Discharge Plan Discharge Attending physician on discharge: Wen Oreilly Consulting providers: Du Woodward Discharging Clinician: Wen Oreilly Anticipated Discharge Date/Time: 12/21/19 13:23 Patient Disposition: Home, Self-Care Activity: as tolerated Diet: diabetic Discharge Instructions: rpt urine culture in 7-10 days time Patient Instructions: Antibiotic Form, Pain Management (DC) Stand Alone Forms: General Discharge Information Follow-up/Referrals: UNKNOWN,DOCTOR [Primary Care Provider] - Discharge Medications: New linezolid [Zyvox] 600 mg Tablet 600 mg PO Q12HR Qty: 12 RF: 0 potassium chloride 20 mEq Packet 20 meq PO DAILY Qty: 7 RF: 0 Continued atorvastatin 40 mg tablet 40 mg PO DAILY RF: 0 amlodipine 5 mg tablet 5 mg PO DAILY RF: 0 levothyroxine 88 mcg tablet 88 mcg PO DAILY RF: 0 gabapentin 300 mg capsule 300 mg PO BID RF: 0 insulin aspart U-100 [Novolog Flexpen U-100 Insulin] 100 unit/mL (3 mL) insulin pen 10 unit SUBCUT AC RF: 0 escitalopram oxalate 5 mg tablet 2.5 mg PO QPM RF: 0 Lantus Solostar U-100 Insulin 100 unit/mL (3 mL) insulin pen 10 unit SUBCUT HS RF: 0 Toviaz 8 mg tablet extended release 24 hr 8 mg PO DAILY RF: 0 prednisone 1 mg Tablet 4 mg PO DAILY RF: 0 multivitamin with minerals [Daily Multivitamin-Minerals] Tablet
[2019-12-21 14:00] VITALS: BP 117/57; PULSE 96; RESP 16; TEMP 36.1; O2SAT 95
--- NOTE | 2019-12-23 11:31 | PC.NURSE ---
Pt daughter called, stating pharmacist Dara at [facility] [place] tried to clarify medication with our hospitalist, RE: zyvox PO q12h. Zyvox is contraindicated with other home medications patient is prescribed. PharmacistDiogo notified of Dr Woodward order and note RE: Pt being monitored while taking both medications concurrently. Pt received last dose inpt was 12/21/2019 in am. Pt having no adverse reactions.
== END 2019-12-21 15:24 | disposition home or self-care (01) | DRG 871 ==
LOC: ANHED 18:50 → ANHIMU 20:42 → ANH2MED 12-21 13:25 → ANHIMU 12-25 13:54
PROVIDERS: Emergency Medicine; Admitting Provider Internal Medicine; Emergency Provider Family Medicine; Visit Provider Family Medicine
DX: A41.9 Sepsis, unspecified organism (principal); G93.41 Metabolic encephalopathy; N10 Acute pyelonephritis; Z16.21 Resistance to vancomycin; B95.2 Enterococcus as the cause of diseases classified elsewhere; M19.90 Unspecified osteoarthritis, unspecified site; K58.9 Irritable bowel syndrome, unspecified; M06.9 Rheumatoid arthritis, unspecified; E11.51 Type 2 diabetes mellitus with diabetic peripheral angiopathy without gangrene; R32 Unspecified urinary incontinence; Z89.511 Acquired absence of right leg below knee; Z85.59 Personal history of malignant neoplasm of other urinary tract organ; Z86.718 Personal history of other venous thrombosis and embolism; I25.2 Old myocardial infarction; Z98.42 Cataract extraction status, left eye; Z98.41 Cataract extraction status, right eye
CPT/HCPCS: 36415; 51701; 71045; 80048; 80053; 81001; 83605; 83690; 84484; 85025; 85027; 85610; 85730; 86140; 87040; 87077; 87081; 87086; 87088; 87186; 87804; 93005; 96361; 96365; 99285; A9270; J0131; J0696; J1650; J1815; J7030

== ENCOUNTER 2023-11-27 20:59 | Emergency (ER) | payer MEDICARE, SELFPAY ==
[2023-11-27] VITALS (8 sets, daily range): BP systolic 117; BP diastolic 61; PULSE 85–102; RESP 15–29; TEMP 36.1; O2SAT 96–99
--- NOTE | ~2023-11-27 | CT_ITS ---
CT head without contrast Indication: Altered mental status Technique: Serial scans were obtained through the brain without the administration of contrast. Dose reduction technique was used on this scan by utilizing automated exposure control and iterative recon struction technique. The dose-length product (DLP) was 605.33 mGy-cm. Findings: There is no evidence of intracranial hemorrhage, mass lesion, or acute infarct. The ventri cles and subarachnoid spaces are dilated, consistent with mild atrophy. Low attenuation regions are seen within the periventricular white matter bilaterally, likely representing changes from chronic mi crovascular ischemic disease. There is no evidence of edema, mass effect or midline shift. The visu alized paranasal sinuses and mastoid air cells are clear. Impression: No intracranial hemorrhage, mass, or acute infarct. Atrophy and chronic white matter changes, as above. Reviewed, dictated and finalized at location . [employer]TE[employer]CE [employer]PER[employer] Impression: No intracranial hemorrhage, mass, or acute infarct. Atrophy and chronic white matter changes, as above.
--- NOTE | ~2023-11-27 | CT_ITS ---
Non-contrast CT scan of the Abdomen and Pelvis Clinical indication: Abdominal pain Technique: 2.5 mm axial scans were obtained through the abdomen and pelvis without intravenous or or al contrast. Dose reduction technique was used on this scan by utilizing automated exposure control a nd iterative reconstruction technique. The dose-length product (DLP) was 910.22 mGy-cm. Findings: Images through the lung bases reveal no abnormalities. There is mild right hydronephrosis with a dilated right extrarenal pelvis with abrupt tapering at the right UPJ, consistent with element of chronic right UPJ obstruction and/or distended right extrarena l pelvis. There is severe left hydroureteronephrosis involving the entirety of the ureter. No radiopa que stones identified. The liver, pancreas, and adrenals appear normal. Calcified splenic granulomas are present. Probable t iny gallstones are present. There are atherosclerotic calcifications of the aorta. There is no evidence of bowel obstruction. There is probable focal wall thickening of sigmoid colon a djacent to a cystic mass/fluid collection the pelvis. Images through the pelvis were performed. There is a 10.8 x 8.5 x 9.8 cm fluid collection versus cyst ic mass with thin peripheral enhancement, nearly abutting the anterior margin of the urinary bladder and moderately compressing and posteriorly. There is minimal surrounding haziness about this fluid co llection/mass. Urinary bladder is unremarkable aside from mass effect. No other adnexal mass seen. Impression: 10.8 x 8.5 x 9.8 cm fluid collection versus cystic mass in the pelvis, compressing the urinary bladde r posteriorly. Diagnostic considerations include abscess versus cystic adnexal lesion. Correlate with clinical symptomatology. Wall thickening of the sigmoid colon adjacent to the fluid collection/cystic mass is present, likely reactive. Severe left hydroureteronephrosis. Mild right hydronephrosis with probable distended right extrarenal pelvis and/or possibly element of chronic UPJ obstruction. Probable tiny gallstones. Reviewed, dictated and finalized at location M. [employer]IP[employer]IMMER Impression: 10.8 x 8.5 x 9.8 cm fluid collection versus cystic mass in the pelvis, compress ing the urinary bladder posteriorly. Diagnostic considerations include abscess versus cystic adnexal lesion. Correlate with clinical symptomatology. Wall thickening of the sigmoid colon adjacent to the fluid collection/cystic ma ss is present, likely reactive. Severe left hydroureteronephrosis. Mild right hydronephrosis with probable distended right extrarenal pelvis and/o r possibly element of chronic UPJ obstruction. Probable tiny gallstones.
--- NOTE | 2023-11-27 21:08 | ECG_ITS ---
Measurements Intervals [place] Rate: 97 P: 33 DC: 195 QRS: 9 QRSD: 102 T: 252 QT: 337 QTc: 429 Interpretive Statements SINUS RHYTHM INCOMPLETE RIGHT BUNDLE BRANCH BLOCK ST-T WAVE ABNORMALITY IN ANTEROLATERAL LEADS- CONSIDER ISCHEMIA BASELINE ARTIFACT- I, III, AVR, AVL ABNORMAL ECG NO PREVIOUS ECG AVAILABLE FOR COMPARISON Electronically Signed On 11-28-2023 6:54:07 [employer]PAR[employer] KITCHEN AIDE by Nehemias Grossman D.O.
[2023-11-27 21:16] LABS: Glucose Point of Care 293 mg/dl (65-105)
[2023-11-27 21:28] LABS: Basophils Percent Auto 0.3 % (0.2-1.2); Eosinophils Percent Auto 0.1 % (0-4.4); Hematocrit 30.2 % (37.0-47.0); Hemoglobin 9.6 g/dL (12.0-15.0); Immature Granulocyte Absolute 0.09 K/mm3 (0.00-0.031); Immature Granulocyte Percent A 0.7 % (0-0.5); Lymphocytes Absolute Auto 0.95 K/mm3 (0.9-3.2); Mean Corpuscular HGB Conc 31.8 g/dl (32-36); Mean Corpuscular Hemoglobin 30.9 pg (26-34); Mean Corpuscular Volume 97.1 fl (80-100); Monocytes Absolute Auto 1.4 K/mm3 (0.1-0.6); Monocytes Percent Auto 10.5 % (2.6-8.5); Neutrophils Absolute Auto 11.1 K/mm3 (1.3-6.7); Neutrophils Percent Auto 81.4 % (45.5-73.1); Platelet Count Result 227 k/mm3 (150-375); Red Blood Count 3.11 M/mm3 (4.2-5.4); Red Cell Distribution Width 14.4 % (11.5-14.5); White Blood Count 13.6 K/mm3 (4.5-10.0)
--- NOTE | 2023-11-27 21:45 | ED.AMS ---
HPI - Altered Mental Status General Chief Complaint: Altered Mental Status Stated Complaint: AMS Time Seen by Provider: 11/27/23 21:07 Source: patient and old records reviewed Mode of arrival: EMS Limitations: clinical condition History of Present Illness HPI narrative: Patient is a 78-year-old female, with past medical history of urethral cancer - not currently undergoing treatment, chronic UTIs, R BKA, RA, DM, who presents to ED via EMS with report of difficulty ambulating. Patient reports she is unable to get out of bed or walk today. She denies any other acute complaints. Does not know why she is in the ED. Daughter at bedside assisted in providing information. Daughter reports patient has been increasingly weak, had difficulty ambulating or getting out of bed over the last 2-3 days. She has been increasingly confused. Concerned she has another UTI. Patient sees a urologist with [facility]. No known fevers. Patient denies abdominal pain though daughter reports abdomen appears bloated and distended. Related Data Home Medications Medication Instructions Recorded Confirmed amlodipine 5 mg tablet 5 mg PO DAILY 12/17/19 05/19/23 atorvastatin 40 mg tablet 40 mg PO HS 12/17/19 05/19/23 calcium carbonate 600 mg-vitamin 1 tablet PO DAILY 12/17/19 05/19/23 D3 10 mcg (400 unit) tablet (Calcium 600 + D(3)) gabapentin 300 mg capsule 300 mg PO BID 12/17/19 05/19/23 insulin glargine 100 unit/mL (3 8 unit subcut DAILY 12/17/19 05/19/23 mL) subcutaneous pen (Lantus Solostar U-100 Insulin) levothyroxine 88 mcg tablet 88 mcg PO DAILY 12/17/19 05/19/23 multivitamin with minerals (Daily 1 tablet PO DAILY 12/17/19 05/19/23 Multivitamin-Minerals tablet) prednisone 1 mg tablet 4 mg PO DAILY 12/17/19 05/19/23 ascorbic acid (vitamin C) 500 mg 500 mg PO DAILY 06/17/21 05/19/23 tablet ergocalciferol (vitamin D2) 50,000 50,000 unit PO WEEKLY 06/17/21 05/19/23 unit tablet hydroxychloroquine 200 mg tablet 200 mg PO DAILY 06/17/21 05/19/23 loratadine 10 mg tablet 10 mg PO DAILY 06/17/21 05/19/23 polyethylene glycol 17 g PO PRN PRN Constipation 06/17/21 05/19/23 apixaban 5 mg tablet 5 mg PO DAILY 05/19/23 05/19/23 Allergies Allergy/AdvReac Type Severity Reaction Status Date / Time Penicillins Allergy Unknown Hives Verified 11/27/23 22:17 Review of Systems Review of Systems: ROS unobtainable: Yes unobtainable due to mental status PMFSH Past Medical History Medical History Amputation of right lower extremity below knee IBS (irritable bowel syndrome) Myocardial infarction Neuropathy associated with cancer Osteoarthritis Peripheral vascular disease BLE subsequent right [id number] amputation Pneumonia Rheumatoid arthritis Seasonal allergies Shingles 2009 Type II diabetes mellitus Urethral cancer Diagnosed 2017 Surgical History Surgical History History of colonoscopy 2010 Hx of appendectomy September 2015 Hx of cataract removal with insertion of prosthetic lens Hx of right BKA March 2019 due to nonhealing foot wound from peripheral vascular disease Family History Family History Father Carcinoma of colon Diabetes mellitus Hypertension Arthritis Mother Diabetes mellitus Hypertension Arthritis Sibling Diabetes mellitus Social History Social History Social History: lives with son, ssh with 2 steps to enter Smoking status: Never smoker Second hand tobacco smoke exposure: No Alcohol intake: never Substance use: never Lack of Transportation: No Lack of Food: Never True Current Housing: I Do Not Have Housing Concerned About Future Housing: No Difficulty Paying Gas/Electric Bills: No Difficulty Paying for Meds: YES Currently Unemployed: YES Ed
[2023-11-27 21:50] LABS: Appearance Urine Turbid (Clear); Bacteria Urine 4+ /hpf; Bilirubin Urine Negative (Negative); Blood Urine 3+ (Negative); Color Urine Yellow (Yellow); Glucose Urine UA Negative (Negative); Ketones Urine Negative (Negative); Leukocyte Esterase Ur 3+ LEU/UL (Negative); Nitrate Urine Negative (Negative); Non Pathogenic Casts 0-2; Protein Urine 2+ mg/dL (Negative); Specific Grav Ur 1.011 (1.001-1.035); Squamous Epithelial Cell Urine Few /hpf (Few); Urobilinogen Urine 0.2 mg/dL (<2.0); WBC Urine >100 /hpf
[2023-11-27 21:51] LABS: Alanine Aminotransferase 16 U/L (6-35); Alkaline Phosphatase 82 U/L (38-126); Anion Gap 6 mmol/L (8-16); Aspartate Amino Transferase 26 U/L (14-36); Bilirubin,Total 0.5 mg/dL (0.2-1.3); Blood Urea Nitrogen 45 mg/dL (7-17); Calcium 8.1 mg/dL (8.4-10.2); Carbon Dioxide 29 mmol/L (22-30); Chloride 99 mmol/L (98-107); Creatine Kinase 269 U/L (30-135); Estimated CRCL calculation 17 ml/min; Estimated Glomerular Filt Rate 20; Glucose 291 mg/dL (65-110); Potassium 3.7 mmol/L (3.4-5.0); Sodium 134 mmol/L (137-145)
[2023-11-27 21:52] LABS: Lactic Acid Reflex 1.3 mmol/L (0.7-2.0)
[2023-11-27 21:53] LABS: Add Urine Microscopic? YES
[2023-11-27 21:54] LABS: INR 1.8; Partial Thromboplastin Time 43.5 SECONDS (22.3-36.8); Prothrombin Time 22.2 Seconds (11.1-14.7)
[2023-11-27] MEDS: SODIUM CHLORIDE 0.9% IV 1,000 ML 999 ML IV CONT (22:16)
[2023-11-28] VITALS (15 sets, daily range): BP systolic 114–134; BP diastolic 54–66; PULSE 80–88; RESP 15–28; O2SAT 93–99
[2023-11-28] MEDS: SODIUM CHLORIDE 0.9% IV 1,000 ML 999 ML IV CONT (00:03)
[2023-11-28] MEDS: CEFEPIME 1 GM/NS 50 ML 1 GM/50 ML BAG IVPB (00:03)
--- NOTE | 2023-11-28 02:31 | PC.NURSE ---
THIS RN SPOKE WITH ERNA AT [facility] TO GIVE PT REPORT. ERNA SPOKE WITH THIS RN AND STATED THEIR WAS A REQUEST OUT FOR A UROLOGY BED.
[2023-11-28] MEDS: VANCOMYCIN 1,000 MG/NS 250 ML 1,000 MG/250 ML BAG 250 MG IVPB (02:35)
== END 2023-11-28 03:58 | disposition short-term general hospital (02) ==
PROVIDERS: Emergency Provider Physician Assistant
DX: A41.9 Sepsis, unspecified organism (principal); N39.0 Urinary tract infection, site not specified; N17.9 Acute kidney failure, unspecified; N73.9 Female pelvic inflammatory disease, unspecified; R53.1 Weakness; R41.82 Altered mental status, unspecified; I25.2 Old myocardial infarction; E11.51 Type 2 diabetes mellitus with diabetic peripheral angiopathy without gangrene; M06.9 Rheumatoid arthritis, unspecified; Z89.511 Acquired absence of right leg below knee; Z85.59 Personal history of malignant neoplasm of other urinary tract organ; Z79.4 Long term (current) use of insulin; Z79.01 Long term (current) use of anticoagulants
CPT/HCPCS: 36415; 70450; 74176; 80053; 81001; 82550; 82948; 83605; 85025; 85610; 85730; 87040; 87086; 87088; 93005; 96361; 96365; 96367; 99285; J0692; J3370; J7030